=== PATIENT | male | born 1945 | race Caucasian/White ===

== ENCOUNTER → 2017-12-25 09:03 | Day surgery (SDC) | payer MEDICARE, OTHER, SELFPAY ==
[2017-12-24 09:37] VITALS: BMI 28.3
--- NOTE | 2017-12-25 08:18 | P.HP_ITS ---
History of Present Illness Chief complaint: [id number] Narrative: Jeffery Hedrick is a 72 year old male [facility], [facility] Medical History COPD (chronic obstructive pulmonary disease) (Acute) DJD (degenerative joint disease) (Acute) Depression (Acute) Left rotator cuff tear (Acute) Median nerve compression (Acute) Osteoarthritis (Acute) Pneumonia (Acute) Surgical History History of arthroscopy of right knee (Acute) History of bilateral knee arthroplasty (Acute) History of bilateral total hip arthroplasty (Acute) History of thumb surgery (Acute) Meds Home Medications Medication Instructions Recorded Confirmed Type MULTIVITAMIN (One Daily 1 tab PO QDAY #0 01/30/11 History Multivitamin) [ASPIRIN] 325 mg PO QDAY #0 01/30/11 History [FISH OIL] PO QDAY #0 01/30/11 History Allergies Allergy/AdvReac Type Severity Reaction Status Date / Time No Known Allergies Allergy Uncoded 11/26/17 13:07
[2017-12-25 09:21] VITALS: BMI 28.3
[2017-12-25 09:28] VITALS: BMI 28.3
[2017-12-25 09:42] VITALS: BP 133/84; PULSE 64; RESP 16; TEMP 36.5; O2SAT 94
[2017-12-25] MEDS: LACTATED RINGERS 1,000 ML 42 ML IV (09:55)
--- NOTE | 2017-12-25 09:57 | PM.PREOP ---
Pre-operative Note Interval Note Pre-op Check: History & Physical Reviewed, Exam Performed and History & Physical exam performed today
[2017-12-25] MEDS: CEFAZOLIN 2 GM/100 ML FROZ.PIGGY IV (11:10)
--- NOTE | 2017-12-25 11:15 | P.OP_ITS ---
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 Operative site was signed and witnessed by the OR staff. The surgery once again discussed with patient and any remaining questions they had were answered fully. Patient was taken back to the operating theater and placed on the operating table in the supine position. Great care taken to ensure that all bony prominences were properly padded. A well-padded tourniquet was placed up along the upper extremity. A timeout was performed to verify patient's name, procedure, and operative site. The upper extremity was then prepped and draped in the normal sterile fashion. An Esmarch was used to exsanguinate the limb and the tourniquet was turned up to 250 mm mercury. A midline dorsal incision was made centered over the MCP joint. 15 blade was used to incise the skin and fascial tissue. Sharp dissection was continued until the extensor mechanism was identified. Once we had good visualization of the extensor mechanism, a split was made thru the extensor tendon. A rongur was used to remove the bony osteophytes from around the joint. We started with the metacarpal. A starting awl was used to get an osseous tunnel. The alignment guide was used to verify the alignment. C-arm was used to verify the alignment. Next, a cutting guide was placed and a oscillating saw was used to remove the joint surface of the metacarpal. Next we broached the metacarpal. We then turned our attention to the proximal phalanx. A similar procedure was performed. A starting awl was used to get a bone tunnel and an alignment guide in place and verified with C-arm. A cutting guide was then used to remove the articular surface. The distal aspect of the joint was then broached. The wound was then copiously irrigated and then implant trials were tested. Once we were sure that the joint was appropriately balanced, the final implants were impacted into place. Final x-rays were obtained. The wound was copiously irrigated and the tendon incision was repaired. This wound was closed in a layered fashion. The patient's hand was then cleaned, dried, and dressed. The patient was taken to the PACU in stable condition. Complications: none Condition: stable Disposition: PACU
[2017-12-25] MEDS: BUPIVACAINE 0.5% W/ EPI (PF) 30 ML VIAL INJ (11:53)
[2017-12-25 12:32] VITALS: BP 119/80; PULSE 65; RESP 14; TEMP 36.8; O2SAT 95
[2017-12-25 12:38] VITALS: BP 124/85; PULSE 76; RESP 16; O2SAT 96
[2017-12-25 12:43] VITALS: BP 131/6; PULSE 71; RESP 16; O2SAT 95
[2017-12-25] MEDS: OXYCODONE IR 5 MG TABLET 10 MG PO (12:45)
[2017-12-25 12:57] VITALS: BP 116/56; PULSE 76; RESP 16; TEMP 37; O2SAT 95
[2017-12-25 13:12] VITALS: BP 108/74; PULSE 64; RESP 16; TEMP 36.6; O2SAT 93
== END | disposition home or self-care (01) ==
PROVIDERS: Family Provider Family Medicine; PCP Family Medicine; Visit Provider Orthopaedic Surgery
PROC: (CPT 26535; principal; 2017-12-25 10:45)
DX: M19.041 Primary osteoarthritis, right hand (principal); M06.9 Rheumatoid arthritis, unspecified; J44.9 Chronic obstructive pulmonary disease, unspecified; Z72.0 Tobacco use
CPT/HCPCS: 26536; J0690; J2250; J2405; J2704; J3010

== ENCOUNTER 2019-09-24 08:49 | Day surgery (SDC) | payer MEDICARE, OTHER, SELFPAY ==
[2019-09-23 12:25] VITALS: BMI 26.6
[2019-09-24] MEDS: LACTATED RINGERS 1,000 ML 42 ML IV (09:43)
[2019-09-24] MEDS: CELECOXIB 200 MG CAPSULE 400 MG PO (09:44)
[2019-09-24] MEDS: ACETAMINOPHEN 325 MG TABLET 975 MG PO (09:45)
[2019-09-24] MEDS: GABAPENTIN 300 MG CAPSULE PO (09:46)
[2019-09-24 09:49] VITALS: BP 150/83; PULSE 60; RESP 18; TEMP 37.1; O2SAT 97; BMI 26.6
--- NOTE | 2019-09-24 11:18 | SUR.PREOP ---
pt continues to wait for MD to come and see him regarding his EKG. MD is still in surgery. Pt resting quietly. Updated on progress.
--- NOTE | 2019-09-24 12:26 | SUR.PREOP ---
Pt talked to Dr. Houston and Dr. Kothari. pt to see primary care DrHemant and see a employment clerk to work up his heart . Surgery was canceled and pt awaiting ride to d/c him home. Pt is understanding and ferry pass given to pt. Pt denies any complaints . Denies chest pain and shortness of breath.
--- NOTE | 2019-09-24 12:29 | SUR.PREOP ---
pt given juice and awaiting his ride home.
== END 2019-09-24 12:30 | disposition home or self-care (01) ==
PROVIDERS: Family Provider Family Medicine; PCP Family Medicine; Referring Provider Specialist; Visit Provider Specialist
PROC: (CPT 55040; principal; 2019-09-24 10:45)
DX: N43.2 Other hydrocele (principal); Z53.09 Procedure and treatment not carried out because of other contraindication; I44.1 Atrioventricular block, second degree
CPT/HCPCS: 55040; 93005

== ENCOUNTER 2020-02-07 10:34 | Day surgery (SDC) | payer MEDICARE, OTHER, SELFPAY ==
[2020-02-02 14:52] VITALS: BMI 26.6
[2020-02-07] VITALS (7 sets, daily range): BP systolic 128–171; BP diastolic 61–74; PULSE 47–60; RESP 14–22; TEMP 36.3–37.1; O2SAT 92–98; BMI 26.6
--- NOTE | 2020-02-07 | PATH_ITS ---
[facility] Accession Number: [id number] . 01 Material submitted: . body - RIGHT HYDROCELE SAC . 02 Diagnosis: Right Hydrocele Sac, Biopsy: Consistent with hydrocele. MRV 02/09/2020 1154 Local . 02 Electronically signed: . Jill Vargas MD, Pathologist NPI- [id number] . 01 Gross description: . Specimen A is received in formalin, labeled with patient identification and hydrocele sac. It consists of a disrupted pink to yellow-castelan membranous sac, measuring 6.5 x 3.0 x 0.5 cm. One surface is smooth and dull. The other surface is wrinkled without any grossly identified papulation. Portable Feed Mill Operator sections are submitted in two cassettes. . Summary of Sections: A1-A2 - Three pieces each. ([id number]) /[facility] 02/08/2020 1626 Local . 02 Pathologist provided ICD-10: N43.2 . 02 CPT . 274784 Performed at: 01 [facility] [address] [facility], [place], [place] [id number] MD William Mathew MD Phone: [phone] Performed at: 02 [facility] [address] [place], [place] [id number] MD Jill Vargas MD Phone: [phone]
--- NOTE | 2020-02-07 11:58 | PM.PREOP ---
Pre-operative Note Interval Note History & Physical reviewed/Exam performed by Physician: Yes Changes to H&P: No H&P completed within 30 days and has changed as indicated here:: There are no changes to the history and physical examination scanned on file.
[2020-02-07] MEDS: LACTATED RINGERS 1,000 ML 42 ML IV (12:19)
[2020-02-07] MEDS: CEFAZOLIN 2 GM/100 ML FROZ.PIGGY IV (12:32)
--- NOTE | 2020-02-07 13:04 | SUR.OPER ---
Supine on padded OR bed, head on pillow, arms secured on padded arm boards at <90 degrees abduction, legs uncrossed, safety belt at thigh, tape over blanket over lower legs.
[2020-02-07] MEDS: NEOMYCIN/POLYMYXIN/BACITRA UD OINT 3 EACH TOP (13:13)
[2020-02-07] MEDS: BUPIVACAINE LIPOSOME 266 MG/20 ML VIAL INJ (13:13)
--- NOTE | 2020-02-07 13:54 | PM.OP.1 ---
Operative Date/Time/Diagnoses Date of procedure: 02/07/20 Time of procedure: 13:54 Pre-op diagnosis: right hydrocele Procedure & Clinicians Procedure: 1. Right hydrocelectomy. Same procedure as scheduled: Yes Indications: 1. Symptomatic right hydrocele. Surgeon: Liss Ramirez Click Yes if Unassisted: Yes Anesthesia Type: General Operative Notes Findings: Moderate sized hydrocele with clear straw-colored fluid. Chronically inflamed in fibrotic tunica vaginalis. Closure Type: primary Specimen(s): none sent (Hydrocele sac-gross only.) Estimated Blood Loss (mL): 0 Blood products transfused: none Tourniquet time (min): 0 Procedure in detail: Patient was positioned supine and was administered general anesthesia. The lower abdomen genitalia and groin were then prepped and draped in sterile fashion. The midline scrotal rough a was then infiltrated with a solution of 1.33% Exparel. The needle tip cautery pen was then used to divide the midline scrotal raphae skin and subcutaneous dartos fascia. The plane at the level of the tunica vaginalis was then encountered. Blunt dissection was then utilized to deliver the hydrocele sac from within the right hemiscrotum. A midline incision was made in the sac and its contents were drained. It was extended the full length of the sac. A redundant portion of the sac was excised using the needle-tip cautery pen. The specimen was submitted to pathology for routine teen gross exam only. Next the edges of the remaining hydrocele sac were reflected posteriorly in a bookkeeping teacher fashion. A running horizontal mattress of 3 0 Monocryl were then utilized to perform the repair. The edges of the sac were secured inferiorly and superiorly to the posterior scrotal wall with the same suture. Local anesthetic was then used to infiltrate an area at the inferolateral right hemiscrotal wall and to the skin. A 15 Divehi fenestrated Best drain was then positioned in the right hemiscrotum and trimmed to appropriate length. It was secured at the level the skin with 2 0 silk using a Bret send all technique. The midline dartos fascia and skin were then infiltrated with local anesthetic a dot dartos fascia was then closed with a running vertical mattress of 2 0 Monocryl. The skin was reapproximated using a running horizontal mattress of 4 0 Monocryl. Antibiotic ointment was applied to the incision line and a generous quantity of dry sterile fluffs was applied to the scrotum. An athletic supporter was then selected and fitted to the patient. The drain was placed to bulb self suction. The patient was then awakened, and transferred to [facility] in stable condition. Complications: none Post-operative Condition: stable Disposition: PACU Plan for aftercare: Discharge home
--- NOTE | 2020-02-07 14:57 | SUR.PHASEII ---
Went over all discharge instructions with patient and called patient's roomate Rosalva, as requested by patient, and went over all instructions with her as well. Patient denies questions
== END 2020-02-07 15:06 | disposition home or self-care (01) ==
PROVIDERS: Family Provider Family Medicine; PCP Family Medicine; Referring Provider Specialist; Visit Provider Specialist
PROC: (CPT 55040; principal; 2020-02-07 12:30)
DX: N43.2 Other hydrocele (principal); N40.0 Benign prostatic hyperplasia without lower urinary tract symptoms
CPT/HCPCS: 55040; C9290; J0690; J1100; J2250; J2405; J2704; J3010

== ENCOUNTER → 2021-01-02 12:25 | Outpatient (CLI) | payer MEDICARE, OTHER, SELFPAY ==
[2021-01-02 20:07] LABS: Add Manual Diff / Slide Review NO; Basophils Absolute Auto 100 /uL (0-100); Basophils Percent Auto 1.2 % (0-2); Eosinophils Absolute Auto 100 /uL (0-450); Eosinophils Percent Auto 1.2 % (2-4); Hematocrit 38.3 % (41-53); Hemoglobin 12.7 g/dL (13.5-17.5); Lymphocytes Absolute Auto 1300 /uL (1100-4500); Lymphocytes Percent Auto 20.5 % (25-40); Mean Corpuscular Hemoglobin 29.6 PG (26-34); Mean Corpuscular Volume 89.5 fL (80-100); Monocytes Absolute Auto 400 /uL (0-900); Monocytes Percent Auto 6.8 % (3-14); Neutrophils Absolute Auto 4400 /uL (1500-7000); Neutrophils Percent Auto 70.3 % (50-75); Platelet Count 279 X10^3/uL (150-400); Red Blood Cell Count 4.28 X10^6/uL (4.5-5.9); Red Cell Distribution Width 15.3 % (11.6-14.8); White Blood Cell Count 6.2 X10^3/uL (4.5-11.0)
[2021-01-02 20:16] LABS: HEMOLYSIS < 15 (0-50); Iron 29 ug/dL (49-181)
[2021-01-02 20:22] LABS: Alanine Aminotransferase 18 IU/L (<50); Albumin Globulin Ratio 1.6 (1.0-2.8); Alkaline Phosphatase 84 U/L (38-126); Aspartate Aminotransferase 30 IU/L (17-59); BUN Creatinine Ratio 20.5 (6-22); Bilirubin Total 0.6 mg/dL (0.2-1.3); Blood Urea Nitrogen 15 mg/dL (9-20); Carbon Dioxide 28 mmol/L (22-32); Chloride 105 mmol/L (98-107); Estimated Glomerular Filt Rate > 60.0 mL/min (>60); Globulin 2.5 g/dL (1.7-4.1); Glucose 112 mg/dL (80-110); HEMOLYSIS < 15 (0-50); Sodium 140 mmol/L (137-145); Total Protein 6.5 g/dL (6.3-8.2)
[2021-01-02 20:28] LABS: Percent Iron Saturation 8 % (20-50); Total Iron Binding Capacity 361 ug/dL (261-462); Transferrin 281 mg/dL (206-381)
[2021-01-02 21:00] LABS: Ferritin 12 ng/mL (18-464)
[2021-01-02 21:28] LABS: Folate 5.4 ng/mL (2.76-20.0); Vitamin B12 336 pg/mL (239-931)
== END ==
PROVIDERS: Family Provider Family Medicine; PCP Family Medicine; Referring Provider Family Medicine; Visit Provider Family Medicine
DX: I70.202 Unspecified atherosclerosis of native arteries of extremities, left leg (principal); I49.1 Atrial premature depolarization; B35.1 Tinea unguium; D64.9 Anemia, unspecified; I82.442 Acute embolism and thrombosis of left tibial vein; R63.4 Abnormal weight loss
CPT/HCPCS: 80053; 82607; 82728; 82746; 83540; 83550; 85025

== ENCOUNTER → 2022-04-25 11:50 | Outpatient (CLI) | payer MEDICARE, OTHER, SELFPAY ==
--- NOTE | 2022-04-25 11:54 | DI.US.S_ITS ---
PROCEDURE: US PERIPH VENOUS LOW EXTREM BI INDICATIONS: Personal history of other venous thrombosis and em TECHNIQUE: Real-time imaging, as well as color and pulse Doppler interrogation, were performed of the deep veins of both legs from the inguinal ligament to the popliteal fossa. COMPARISON: None. FINDINGS: Right: The common femoral, femoral and popliteal veins are normally compressible, and free of intraluminal thrombus. Color and pulse Doppler demonstrate normal phasic intravascular flow. There is normal augmentation response to distal compression maneuver. Left: The common femoral, femoral and popliteal veins are normally compressible, and free of intraluminal thrombus. Color and pulse Doppler demonstrate normal phasic intravascular flow. There is normal augmentation response to distal compression maneuver. IMPRESSION: No evidence of deep venous thrombosis in the lower extremities. Dictated by: Gary Juárez M.D. on 04/25/2022 at 16:40 Approved by: Gary Juárez M.D. on 04/25/2022 at 16:41
== END ==
PROVIDERS: Family Provider Family Medicine; PCP Family Medicine; Referring Provider Family Medicine; Visit Provider Family Medicine
DX: Z86.718 Personal history of other venous thrombosis and embolism (principal)
CPT/HCPCS: 93970

== ENCOUNTER → 2022-11-08 11:18 | Outpatient (CLI) | payer MEDICARE, OTHER, SELFPAY ==
--- NOTE | 2022-11-08 | DI.CT.S_ITS ---
PROCEDURE: CT ABDOMEN PELVIS W CON INDICATIONS: Right lower quadrant pain TECHNIQUE: After the administration of oral and intravenous contrast, axial sections were acquired from the lung bases to the pubic symphysis. Coronal and sagittal reformats were performed. For radiation dose reduction, the following was used: automated exposure control, adjustment of mA and/or kV according to patient size. COMPARISON:[facility], CT, ABDOMEN/PELVIS WITH CONTRAST, 09/24/2008, 20:02. FINDINGS: Image quality: Significant beam hardening artifact secondary to bilateral total hip arthroplasty hardware which obscures visualization of the lower pelvis.. Lung bases: Bibasilar atelectasis. Stable 6 mm posterior left lower lobe nodule. Heart: Heart size is normal. Mild leftward displacement secondary to moderate eventration of the right hemidiaphragm. This is not significantly changed. ABDOMEN: Liver: There are a few scattered hepatic hypodensities which appear larger and more prominent compared to the prior study. These measure fluid attenuation. Largest on the right measures approximately 1.6 cm in size. Largest on the left measures approximately 1.2 cm in diameter. Gallbladder: Gallbladder appears unremarkable. Minimal prominence of the common bile duct. Common bile duct measures approximately 8 mm as measured in the coronal plane (image 30/series 3). No pericholecystic inflammatory changes. Biliary ducts: No intrahepatic biliary ductal dilatation. Pancreas: There is mild dilatation of the main pancreatic duct measuring approximately 6 mm in diameter. No evidence for definitive mass or adenopathy identified. No definite stone identified along the course of the common bile duct or region of the ampulla. Spleen: Spleen is unremarkable in appearance. Spleen is normal in size. Incidental splenule as before. Adrenal Glands: Unremarkable. Kidneys and Ureters: Bilateral kidneys are symmetric in enhancement. Partially exophytic left renal hypodensity appears to have increased in size, measuring slightly higher than fluid attenuation and approximately 1.9 cm in size. This is still favored to represent a renal cyst. There is a 0.8 cm stone noted within the lower left kidney measuring approximately 1300 Hounsfield units. Left ureter is normal in course and caliber. On the right, there is mild hydronephrosis and associated proximal right hydroureter. Distal segments of the right ureter are not visible secondary to right lower quadrant and right abdominal mass lesions described below. Stomach and Bowel: Stomach, small bowel loops, and colon are unremarkable. No evidence for obstruction. Relatively high density material noted in the sigmoid colon possibly representing ingested oral contrast although majority oral contrast is noted in the small bowel. No evidence for abnormal wall thickening or acute inflammatory changes. Extensive colonic diverticulosis most prominent in the sigmoid colon. No evidence for acute diverticulitis. The appendix is not visualized on this examination. Peritoneum: There is a large oval hypodense mass measuring approximately soft tissue attenuation noted in the right mid to lower abdomen which displaces the IVC and aorta medially and to the left of the spine. It causes mass effect and slight displacement of the adjacent colon anteriorly. There is intimate, close approximation of the anterolateral margin of this mass with the proximal ascending colon and terminal ileum. Definite fat plane is not visualized although this mass does not definitively appear to originate from bowel. Additionally, the posterior, medial margin of this mass closely approximates and causes mass effect upon the right psoas muscle. The mid portion of the right psoas is not definitively distinguishable from this mass, raising possibility invasion. An example is seen on image 57/series 2. Mass measures approximately 11.0 x 8.1 cm in axial transverse dimension (image 50/series 2) and approximately 15.5 cm in craniocaudal dimension (image 25/series 3). Immediately inferior to this mass is a possible separate large multi lobulated fat attenuating mass in the lower right quadrant extending into the right pelvis . This mass measures approximately 8.7 x 6.3 cm in axial cross-sectional dimension (image 74/series 2) and approximately 8.4 cm in craniocaudal dimension (image 30/series 3). Lobulated components of this density mass extend along and anterior to the soft tissue mass inferiorly. There is suggestion of possible extension into the right inguinal canal. There are a few strands of soft tissue attenuation within this fat density mass. This mass causes leftward deviation of the adjacent sigmoid colon without underlying invasion. It causes mass effect upon the traversing large pelvic vessels without evidence for occlusion or thrombus. No abnormal intraperitoneal fluid. No free air. Ventral Wall: No hernia. Abdominal Nodes: No retroperitoneal or mesenteric adenopathy by size criteria. Vessels: Aorta and inferior vena cava are normal in size. PELVIS: Pelvic Organs: Unremarkable. Bladder: Unremarkable. Pelvic Nodes: No enlarged lymph nodes. Miscellaneous: No inguinal hernias are seen. Bones: No suspicious osseous lesions. Postsurgical changes from bilateral total hip arthroplasties. Severe beam hardening artifact of surgical hardware obscures visualization of the lower pelvic structures. No acute vertebral body compression fractures. Multilevel spondylitic changes throughout the imaged spine. IMPRESSION: 1. Very large oval low density mass noted in the right mid to lower abdomen with associated mass effect of the adjacent ascending colon and distal small bowel as well as possible invasion of the adjacent right psoas muscle. This mass measures 11.0 x 8.1 x 15.5 cm in size. It is difficult to determine the origin of this mass from either bowel or possible musculature. Consideration include possible mucocele of the appendix, non mucinous adenocarcinoma, versus other neoplastic process. No adenopathy identified. No definite distal metastases. No evidence for associated bowel obstruction or acute inflammatory process. 2. There is a lobulated, fat attenuating mass extending immediately inferior to the above mass within the right lower quadrant/pelvis which measures approximately 8.7 x 6.3 x 8.4 cm in size with associated mass effect. No definite invasion into the adjacent structures. Similar to above, the origin of this mass is also difficult to determine. A liposarcoma may have a similar appearance versus other fatty tumor. No pelvic adenopathy visualized. 3. A few hepatic hypodensities which have increased in size and prominence compared to prior study dated September 24, 2008 measure fluid attenuation and likely represent hepatic cysts. However, these are incompletely characterized and hepatic metastases not completely excluded. 4. Interval development of mildly dilated common bile duct and main pancreatic duct without evidence for choledocholithiasis or visible mass/adenopathy near the pancreatic head. Consider further evaluation with dedicated MRI of the abdomen using pancreatic mass protocol. 5. Colonic diverticulosis without acute diverticulitis. 6. Other chronic findings as above. Dictated by: Jose Alfredo Villarreal M.D. on 11/08/2022 at 20:31 Approved by: Jose Alfredo Villarreal M.D. on 11/08/2022 at 21:38
== END ==
PROVIDERS: Family Provider Family Medicine; PCP Family Medicine; Referring Provider Family Medicine; Visit Provider Family Medicine
DX: R10.31 Right lower quadrant pain (principal); R19.03 Right lower quadrant abdominal swelling, mass and lump; K57.30 Diverticulosis of large intestine without perforation or abscess without bleeding; R93.5 Abnormal findings on diagnostic imaging of other abdominal regions, including retroperitoneum
CPT/HCPCS: 74177

== ENCOUNTER → 2023-01-06 11:28 | Outpatient (CLI) | payer MEDICARE, OTHER, SELFPAY ==
--- NOTE | 2023-01-06 | DI.CT.S_ITS ---
PROCEDURE: CT CHEST ABD PEL W CON INDICATIONS: ABDOMINAL MASS TECHNIQUE: After the administration of oral and intravenous contrast, axial sections acquired from the supraclavicular neck to the pubic symphysis. Coronal and sagittal reformats were performed. For radiation dose reduction, the following was used: automated exposure control, adjustment of mA and/or kV according to patient size. COMPARISON: CT 09/24/2008 FINDINGS: Image quality: Excellent. CHEST: Lower Neck: No enlarged lymph nodes. Thyroid: Within normal limits. Axillae: No enlarged lymph nodes. Chest Wall: Unremarkable. Lungs and Airways: Elevated right hemidiaphragm. A couple solid pulmonary nodules. These include: -4-5 mm subpleural nodule, right lower lobe (series 6, image 176). -8-9 mm solid nodule, left lower lobe (series 6, image 248). This is stable since 2008, statistically benign. Pleura: No pneumothorax or pleural effusions. Heart: Heart size is normal. No pericardial effusion. Thoracic Vessels: The aorta and pulmonary arteries demonstrate normal size. Mediastinum and Pauline: No enlarged lymph nodes. Esophagus: No wall thickening. No hiatal hernia. ABDOMEN: Liver: Hypoattenuating liver lesions with fluid attenuation, favoring benign cysts. Gallbladder: Unremarkable. Biliary ducts: Unremarkable. Pancreas: Unremarkable. Spleen: Unremarkable. Adrenal Glands: Unremarkable. Kidneys and Ureters: 7 mm nonobstructing stone in the inferior calyx of the left kidney. Fluid attenuating hepatic cysts. Stomach and Bowel: Stomach, small bowel loops, and colon are unremarkable. Colonic diverticulosis without evidence of diverticulitis. Peritoneum/retroperitoneum: There is a mixed soft tissue and fat containing mass originating in the right retroperitoneal space measuring 22.7 x 11 x 9.7 cm (cc, transverse, AP) Ventral Wall: No hernia. Abdominal Nodes: No retroperitoneal or mesenteric adenopathy by size criteria. Vessels: Aorta and inferior vena cava are normal in size. PELVIS: Pelvic Organs: Unremarkable. Bladder: Unremarkable. Pelvic Nodes: No enlarged lymph nodes. Miscellaneous: No inguinal hernias are seen. Bones: Unremarkable. IMPRESSION: 1. Retroperitoneal mass with soft tissue and fat components measuring 22.7 x 11 x 9.7 cm. 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 Surgical consultation is recommended. 2. No definite evidence of metastatic disease. 3. A couple of solid pulmonary nodules, the largest of which is stable since 2008 and is therefore statistically benign. The right-sided subpleural nodule was not seen on the prior exam due to field of view, but location favors an intrapulmonary lymph node. Attention on follow-up. Dictated by: Bar Martin M.D. on 01/06/2023 at 12:52 Approved by: Bar Martin M.D. on 01/06/2023 at 13:04
[2023-01-06 11:57] LABS: Estimated Glomerular Filt Rate > 60 mL/min (>60)
== END ==
PROVIDERS: Radiology Diagnostic Radiology; Family Provider Family Medicine; PCP Family Medicine; Referring Provider Internal Medicine Cardiovascular Disease; Visit Provider Internal Medicine Cardiovascular Disease
DX: R19.00 Intra-abdominal and pelvic swelling, mass and lump, unspecified site (principal); R91.8 Other nonspecific abnormal finding of lung field
CPT/HCPCS: 36415; 71260; 74177; 82565; Q9967

== ENCOUNTER → 2023-05-15 11:07 | Outpatient (CLI) | payer MEDICARE, OTHER, SELFPAY ==
--- NOTE | 2023-05-15 11:12 | DI.CT.S_ITS ---
PROCEDURE: CT ABDOMEN PELVIS W CON INDICATIONS: RETROPERITONEAL SARCOMA TECHNIQUE: After the administration of oral and intravenous contrast, axial sections were acquired from the lung bases to the pubic symphysis. Coronal and sagittal reformats were performed. For radiation dose reduction, the following was used: automated exposure control, adjustment of mA and/or kV according to patient size. COMPARISON:[facility], CT, CT CHEST ABD PEL W CON, 01/06/2023, 13:17. [facility], CT, CT ABDOMEN PELVIS W CON, 11/08/2022, 13:01. FINDINGS: Image quality: Excellent. Lung bases: Please see dedicated CT. ABDOMEN: Liver: Stable hepatic cysts. Elevation the right hemidiaphragm. Gallbladder: Unremarkable. Biliary ducts: Unremarkable. Pancreas: Unremarkable. Spleen: Unremarkable. Adrenal Glands: Unremarkable. Kidneys and Ureters: Fluid attenuating renal cysts; no complex renal cysts which require follow-up. No hydronephrosis . 5 millimeter nonobstructing left-sided nephrolithiasis. Stomach and Bowel: Moderate colonic stool load. Colonic diverticulosis without evidence of diverticulitis. Peritoneum: No abnormal intraperitoneal fluid. No free air. Ventral Wall: No hernia. Abdominal Nodes: No retroperitoneal or mesenteric adenopathy by size criteria. Vessels: Aorta and inferior vena cava are normal in size. PELVIS: Pelvic Organs: Interval resection of the right retroperitoneal/pelvic mass. No evidence of local recurrence. Bladder: Unremarkable. Pelvic Nodes: No enlarged lymph nodes. Miscellaneous: No inguinal hernias are seen. Bones: Unremarkable. IMPRESSION: Interval resection of the right pelvic/retroperitoneal mass. No evidence of local recurrence or beau disease. No evidence of metastatic disease. Dictated by: Bar Martin M.D. on 05/15/2023 at 13:20 Approved by: Bar Martin M.D. on 05/15/2023 at 13:36
--- NOTE | 2023-05-15 11:13 | DI.CT.S_ITS ---
PROCEDURE: CT CHEST WO CON INDICATIONS: RETROPERITONEAL SARCOMA TECHNIQUE: Noncontrast 5 mm thick sections acquired from the pulmonary apices to the posterior costophrenic angles. 1 mm lung window, 5 mm thick coronal and sagittal and 7 mm axial MIP reformats were then acquired. For radiation dose reduction, the following was used: automated exposure control, adjustment of mA and/or kV according to patient size. COMPARISON: [facility], CT, CT CHEST ABD PEL W CON, 01/06/2023, 13:17. FINDINGS: Image quality: Excellent. Lungs and pleura: No acute air space opacities. No pleural effusions or pneumothorax. Central and peripheral airways are patent and normal in caliber. Elevation of the right hemidiaphragm. Scattered solid pulmonary nodules. Examples include: -Stable 4-5 millimeter subpleural nodule in the right lower lobe (series 3, image 172). - Stable left lower lobe solid pulmonary nodule since 2008 (series 3, image 273). - stable 2 millimeter solid nodule, right upper lobe (series 3, image 81). No new nodules present. Mediastinum: Heart size is normal. No pericardial effusion. No mediastinal adenopathy by size criteria. Thoracic aorta and central pulmonary arteries are normal in size. Esophagus is normal in caliber. No hiatal hernia. Bones and chest wall: No suspicious bony lesions. No vertebral body compression fractures. No axillary or supraclavicular adenopathy by size criteria. Thyroid gland is mildly atrophic. Abdomen: Fluid attenuating hepatic cysts. IMPRESSION: No definite evidence of metastatic disease in the chest. Stable subpleural nodule in the right lower lobe. Dictated by: Bar Martin M.D. on 05/15/2023 at 13:12 Approved by: Bar Martin M.D. on 05/15/2023 at 13:16
[2023-05-15 11:33] LABS: Estimated Glomerular Filt Rate > 60 mL/min (>60)
== END ==
PROVIDERS: Radiology Diagnostic Radiology; Family Provider Family Medicine; PCP Family Medicine; Referring Provider Surgery; Visit Provider Surgery
DX: C48.0 Malignant neoplasm of retroperitoneum (principal); R91.1 Solitary pulmonary nodule
CPT/HCPCS: 36415; 71250; 74177; 82565; Q9967

== ENCOUNTER → 2023-08-07 12:59 | Outpatient (CLI) | payer MEDICARE, OTHER, SELFPAY ==
--- NOTE | 2023-08-07 | DI.CT.S_ITS ---
PROCEDURE: CT CHEST ABD PEL W CON INDICATIONS: Malignant neoplasm of retroperitoneum TECHNIQUE: After the administration of oral and intravenous contrast, axial sections acquired from the supraclavicular neck to the pubic symphysis. Coronal and sagittal reformats were performed. For radiation dose reduction, the following was used: automated exposure control, adjustment of mA and/or kV according to patient size. COMPARISON: [facility], CT, CT CHEST ABD PEL W CON, 01/06/2023, 13:17. FINDINGS: Image quality: Excellent. CHEST: Lower Neck: No enlarged lymph nodes. Thyroid: No thyroid nodules which require sonographic follow up, per consensus guidelines. Axillae: No enlarged lymph nodes. Chest Wall: Unremarkable. Bones: Unremarkable. Lungs and Pleura: No pneumothorax or pleural effusions. Stable 4.5 mm subpleural right lower lobe pulmonary nodule, current image 216/6. Soft stable 8 mm pulmonary nodule, subpleural location, extreme left lung base, current image 312/6. This is stable dating back to 2008. No new or increasing pulmonary nodules. Elevated right hemidiaphragm with superior displacement of the liver and mediastinal shift to the left, a stable finding. Heart: Heart size is normal. No pericardial effusion. Thoracic Vessels: The aorta and pulmonary arteries demonstrate normal size. Mediastinum and Pauline: No enlarged lymph nodes. Esophagus: No wall thickening. No hiatal hernia. ABDOMEN: Liver: No solid mass. Multiple stable low-density liver lesions are likely cysts versus hemangiomata. No new or increasing liver lesions. Gallbladder: No radiopaque gallstones or wall thickening. Biliary ducts: No biliary dilation. Pancreas: No ductal dilation. Spleen: Size is within normal limits. Adrenal Glands: No adrenal nodules. Kidneys and Ureters: No hydronephrosis. No solid mass. No complex renal cystic lesion which requires follow up. 7 mm left lower pole renal stone, as before. No obstruction. Stomach and Bowel: Normal colonic caliber, without significant wall thickening. Relatively extensive sigmoid diverticulosis without evidence of diverticulitis. Peritoneum: No abnormal intraperitoneal fluid. No free air. Retroperitoneum: Interval resection of a large right abdominal pelvic retroperitoneal mass, which is previously measured 22.7 x 11 x 9.7 cm. No evidence of residual or recurrent neoplasm in the retroperitoneum or the peritoneal cavity. Ventral Wall: No hernia. Abdominal Nodes: No retroperitoneal or mesenteric adenopathy by size criteria. Vessels: Aorta and inferior vena cava are normal in size. PELVIS: Pelvic Organs: Unremarkable. Bladder: Unremarkable. Pelvic Nodes: No enlarged lymph nodes. Miscellaneous: No inguinal hernias are seen. Bones: No aggressive osseous abnormality. Bilateral total hip arthroplasties. Lumbar degenerative change. IMPRESSION: 1. Interval resection of a very large retroperitoneal malignancy. No evidence of residual or recurrent neoplasm. 2. Stable pulmonary nodules are likely benign. 3. No other findings suspicious for metastatic disease in the chest, abdomen, and pelvis. Dictated by: Pato Molina M.D. on 08/07/2023 at 17:13 Approved by: Pato Molina M.D. on 08/07/2023 at 17:21
[2023-08-07 13:22] LABS: Estimated Glomerular Filt Rate > 60 mL/min (>60)
== END ==
PROVIDERS: Radiology Diagnostic Radiology; Family Provider Family Medicine; PCP Family Medicine; Referring Provider Surgery; Visit Provider Surgery
DX: C48.0 Malignant neoplasm of retroperitoneum (principal); R19.03 Right lower quadrant abdominal swelling, mass and lump; R91.8 Other nonspecific abnormal finding of lung field
CPT/HCPCS: 36415; 71260; 74177; 82565; Q9967

== ENCOUNTER → 2023-10-13 10:29 | Outpatient (CLI) | payer MEDICARE, OTHER, SELFPAY ==
--- NOTE | 2023-10-13 | DI.CT.S_ITS ---
PROCEDURE: CT ABDOMEN PELVIS W CON INDICATIONS: Malignant neoplasm of retroperitoneum TECHNIQUE: After the administration of intravenous contrast, axial sections acquired from the lung bases to the pubic symphysis. Coronal and sagittal reformats were performed. For radiation dose reduction, the following was used: automated exposure control, adjustment of mA and/or kV according to patient size. COMPARISON: [facility], CT, CT ABDOMEN PELVIS W CON, 11/08/2022, 13:01. [facility], CT, ABDOMEN/PELVIS WITH CONTRAST, 09/24/2008, 20:02. [facility], CT, CT ABDOMEN PELVIS W CON, 05/15/2023, 12:28. FINDINGS: Image quality: Suboptimal due to motion artifact and metallic artifact. Lower Chest: Please see same day dedicated chest CT. ABDOMEN: Liver: Hepatic cysts. Gallbladder: No radiopaque gallstones or wall thickening. Biliary ducts: No biliary dilation. Pancreas: No ductal dilation. Spleen: Size is within normal limits. Adrenal Glands: No adrenal nodules. Kidneys and Ureters: No hydronephrosis. No solid mass. No complex renal cystic lesion which requires follow up. Nonobstructing 8 mm nephrolithiasis on the left. Stomach and Bowel: Normal colonic caliber, without significant wall thickening. Colonic diverticulosis without evidence of diverticulitis. Peritoneum: No abnormal intraperitoneal fluid. No free air. Retroperitoneal resection on the right. Ventral Wall: No significant ventral hernia. Abdominal Nodes: No retroperitoneal or mesenteric adenopathy by size criteria. Vessels: Aorta and inferior vena cava are normal in size. PELVIS: Pelvic Organs: Unremarkable. Bladder: No bladder wall thickening, accounting for underdistention. Pelvic Nodes: No enlarged lymph nodes. Miscellaneous: No inguinal hernias are seen. Bones: No aggressive osseous abnormality. Bilateral hip arthroplasties. Degenerative disc disease. IMPRESSION: Prior retroperitoneal mass resection, without evidence of local recurrence. Other chronic findings as above. Dictated by: Bar Martin M.D. on 10/13/2023 at 13:15 Approved by: Bar Martin M.D. on 10/13/2023 at 13:20
--- NOTE | 2023-10-13 | DI.CT.S_ITS ---
PROCEDURE: CT CHEST WO CON INDICATIONS: Malignant neoplasm of retroperitoneum TECHNIQUE: Noncontrast 5 mm thick sections acquired from the pulmonary apices to the posterior costophrenic angles. 1 mm lung window, 5 mm thick coronal and sagittal and 7 mm axial MIP reformats were then acquired. For radiation dose reduction, the following was used: automated exposure control, adjustment of mA and/or kV according to patient size. COMPARISON: [facility], CT, CT CHEST WO CON, 05/15/2023, 12:28. FINDINGS: Image quality: Diagnostic. Lower Neck: No enlarged lymph nodes. Thyroid: No thyroid nodules which require sonographic follow up, per consensus guidelines. Axillae: No enlarged lymph nodes. Chest Wall: Unremarkable. Bones: Unremarkable. Lungs and Pleura: No pneumothorax or pleural effusions. Stable solid pulmonary nodules, largest measures 4 x 5 mm in the juxtapleural station of the right lower lobe (series 3, image 187). Heart: Heart size is mildly enlarged. No pericardial effusion. Thoracic Vessels: The aorta and pulmonary arteries demonstrate normal size. Mediastinum and Pauline: No enlarged lymph nodes. Esophagus: No wall thickening. No hiatal hernia. Upper Abdomen: Hepatic cysts are present. IMPRESSION: Stable solid pulmonary nodules. Dictated by: Bar Martin M.D. on 10/13/2023 at 13:13 Approved by: Bar Martin M.D. on 10/13/2023 at 13:15
[2023-10-13 11:02] LABS: Estimated Glomerular Filt Rate > 60 mL/min (>60)
== END ==
PROVIDERS: Radiology Diagnostic Radiology; Family Provider Family Medicine; PCP Family Medicine; Referring Provider Physician Assistant; Visit Provider Physician Assistant
DX: C48.0 Malignant neoplasm of retroperitoneum (principal); R91.8 Other nonspecific abnormal finding of lung field; K76.89 Other specified diseases of liver; I51.7 Cardiomegaly; Z85.831 Personal history of malignant neoplasm of soft tissue
CPT/HCPCS: 36415; 71250; 74177; 82565; Q9967

== ENCOUNTER → 2024-03-10 10:25 | Outpatient (CLI) | payer MEDICARE, OTHER, SELFPAY ==
--- NOTE | 2024-03-10 | DI.CT.S_ITS ---
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 Coronal and sagittal reformats were performed. For radiation dose reduction, the following was used: automated exposure control, adjustment of mA and/or kV according to patient size. COMPARISON: [facility], CT, CT ABDOMEN PELVIS W CON, 11/08/2022, 13:01. [facility], CT, CT ABDOMEN PELVIS W CON, 10/13/2023, 11:41. FINDINGS: Image quality: Diagnostic. Lower Chest: Please refer to a separate report for today's CT chest findings. There is elevation of the right hemidiaphragm. Extreme lung bases are clear. Heart is deviated to the left by elevated right hemidiaphragm. ABDOMEN: Liver: No solid mass. Gallbladder: No radiopaque gallstones or wall thickening. Biliary ducts: No biliary dilation. Pancreas: No ductal dilation. Spleen: Size is within normal limits. Adrenal Glands: No adrenal nodules. Kidneys and Ureters: No hydronephrosis. No solid mass. No complex renal cystic lesion which requires follow up. Stomach and Bowel: Normal colonic caliber, without significant wall thickening. Note is made of interposition of bowel loops anterior to the liver. Sigmoid diverticulosis without evidence of acute diverticulitis. Peritoneum/retroperitoneum: No abnormal intraperitoneal fluid. No free air. Previous resection very large acute right retroperitoneal mass. No residual or recurrent mass noted. Ventral Wall: No significant ventral hernia. Abdominal Nodes: No retroperitoneal or mesenteric adenopathy by size criteria. Vessels: Aorta and inferior vena cava are normal in size. PELVIS: Pelvic Organs: Unremarkable. Bladder: No bladder wall thickening, accounting for underdistention. Pelvic Nodes: No enlarged lymph nodes. Miscellaneous: No inguinal hernias are seen. Bones: No aggressive osseous abnormality. Bilateral total hip arthroplasties. Lumbar degenerative change. IMPRESSION: 1. Remote resection of very large retroperitoneal mass on the right. No residual or recurrent local disease. No metastatic disease in the abdomen and pelvis noted. Dictated by: Pato Molina M.D. on 03/11/2024 at 9:13 Approved by: Pato Molina M.D. on 03/11/2024 at 9:23
--- NOTE | 2024-03-10 | DI.CT.S_ITS ---
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 1 mm lung window, 5 mm thick coronal and sagittal and 7 mm axial MIP reformats were then acquired. For radiation dose reduction, the following was used: automated exposure control, adjustment of mA and/or kV according to patient size. COMPARISON: [facility], CT, CT CHEST WO CON, 10/13/2023, 11:41. FINDINGS: Image quality: Diagnostic. Lower Neck: No enlarged lymph nodes. Thyroid: No thyroid nodules which require sonographic follow up, per consensus guidelines. Axillae: No enlarged lymph nodes. Chest Wall: Incidental pectus excavatum. Remote fracture of the left L1 transverse process. Or for Bones: No destructive osseous lesion. Lungs and Pleura: No pneumothorax or pleural effusions. Similar-appearing large linear area of consolidation/ground-glass opacity within the upper right lobe. No significant interval change in a solid oval pulmonary nodule within the posterior lower lobe that measures approximately 0.8 x 0.8 cm, compared to 0.8 x 0.7 cm. Similar-appearing round solid 4 mm pulmonary nodule within the posterior lower lobe. Stable solid 5 mm pulmonary nodule within the right middle lobe. Stable 5 mm linear solid pulmonary nodule within the lateral right lower lobe. Stable 6 mm linear solid pulmonary nodule within the posterior right lower lobe. Interval development of a 5 mm nodular ground-glass nodule within the posterior left lower lobe. There are 2 stable sub 5 mm nodules within the left oblique fissure. Atelectasis along the dependent portions of the lungs. Heart: Heart size is normal. No pericardial effusion. Thoracic Vessels: The aorta and pulmonary arteries demonstrate normal size. Small amount of calcified arthrosclerotic plaques within the aorta and its tributaries. Mediastinum and Pauline: No enlarged lymph nodes. Esophagus: No wall thickening. No hiatal hernia. Upper Abdomen: There are multiple hypodensities throughout the liver which are cysts. There are additional hypodensities throughout the liver which are too small to characterize. Visualized upper abdomen solid organs and bowel loops appear normal. There is bowel anterior to the liver. There is a 1.9 cm cyst within the inferior pole of the right kidney. IMPRESSION: 1. There are multiple pulmonary nodules throughout the lung, most of which are stable. However, there has been interval development of a 5 mm nodular ground-glass nodule within the posterior left lower lobe. 2. Similar-appearing large linear area of consolidation/ground-glass opacity within the upper right lobe. Dictated by: Urbano Hernández M.D. on 03/10/2024 at 14:17 Approved by: Urbano Hernández M.D. on 03/10/2024 at 15:13
[2024-03-10 10:59] LABS: Estimated Glomerular Filt Rate > 60 mL/min (>60)
== END ==
PROVIDERS: Radiology Diagnostic Radiology; Family Provider Family Medicine; PCP Family Medicine; Referring Provider Physician Assistant; Visit Provider Physician Assistant
DX: C48.0 Malignant neoplasm of retroperitoneum (principal); Z08 Encounter for follow-up examination after completed treatment for malignant neoplasm; R91.8 Other nonspecific abnormal finding of lung field; Z85.831 Personal history of malignant neoplasm of soft tissue
CPT/HCPCS: 36415; 71250; 74177; 82565; Q9967

== ENCOUNTER → 2024-05-28 10:23 | Outpatient (CLI) | payer MEDICARE, OTHER, SELFPAY ==
--- NOTE | 2024-05-28 10:25 | DI.CT.S_ITS ---
PROCEDURE: CT CHEST WO CON INDICATIONS: Abdominal sarcoma TECHNIQUE: Noncontrast 5 mm thick sections acquired from the pulmonary apices to the posterior costophrenic angles. 1 mm lung window, 5 mm thick coronal and sagittal and 7 mm axial MIP reformats were then acquired. For radiation dose reduction, the following was used: automated exposure control, adjustment of mA and/or kV according to patient size. COMPARISON: [facility], CT, CT ABDOMEN PELVIS W CON, 11/08/2022, 13:01. [facility], CT, CT CHEST WO CON, 03/10/2024, 10:54. FINDINGS: Image quality: Diagnostic. Lower Neck: No enlarged lymph nodes. Thyroid: Normal CT appearance. Axillae: No enlarged lymph nodes. Chest Wall: No suspicious soft tissue lesions. Bones: No suspicious bone lesions. Scattered degenerative disc changes in the thoracic spine. Lungs and Pleura: Mild dependent mucus in the trachea. Peripheral airways are patent. Platelike right upper lobe anteromedial atelectasis. Right lower lobe linear interstitial thickening and scarring. Asymmetric elevation of the right hemidiaphragm. 0.7 cm subpleural right lateral lower lobe nodule, 4/158, stable. 0.9 cm solid nodule in the subpleural left lower lobe posteriorly, 4/260, stable. No new nodules, ground-glass opacities, or consolidations. No pleural effusions. Heart: The heart is enlarged and displaced to the left by diaphragmatic elevation and abdominal contents. There is biventricular dilatation. Thoracic Vessels: The aorta and pulmonary arteries demonstrate normal size. Mediastinum and Pauline: No enlarged lymph nodes. Esophagus: No wall thickening. No hiatal hernia. Upper Abdomen: Dictated separately IMPRESSION: Slow growth of bilateral lower lobe lung nodules compared to 11/08/22. The chest is otherwise stable including asymmetric right hemidiaphragm elevation displacing the mediastinum to the left. Dictated by: Nikole Pena M.D. on 05/28/2024 at 15:07 Approved by: Nikole Pena M.D. on 05/28/2024 at 15:35
--- NOTE | 2024-05-28 10:25 | DI.CT.S_ITS ---
PROCEDURE: CT ABDOMEN PELVIS W CON INDICATIONS: Abdominal sarcoma TECHNIQUE: After the administration of intravenous contrast, axial sections acquired from the lung bases to the pubic symphysis. Coronal and sagittal reformats were performed. For radiation dose reduction, the following was used: automated exposure control, adjustment of mA and/or kV according to patient size. COMPARISON: [facility], CT, CT ABDOMEN PELVIS W CON, 11/08/2022, 13:01. [facility], CT, CT ABDOMEN PELVIS W CON, 03/10/2024, 11:59. FINDINGS: Image quality: Diagnostic. Lower Chest: Dictated separately ABDOMEN: Liver: Stable scattered hepatic cysts. No new lesions. Gallbladder: No wall thickening or calcified stones. Biliary ducts: No biliary dilation. Pancreas: Normal size and morphology without visible ductal dilatation or inflammation. Spleen: Size is within normal limits. Adrenal Glands: No adrenal nodules. Kidneys and Ureters: Symmetric enhancement. No hydronephrosis. Right intrarenal parapelvic cysts. Nonobstructing left lower pole collecting system calcification measuring 8 mm with Hounsfield units of 1200. Small exophytic left midpole cortical cyst. No solid masses. Stomach and Bowel: Stomach filled with ingested material. Small bowel is within normal limits. Extensive sigmoid colonic diverticulosis without acute inflammation. The appendix is normal. Peritoneum: No evidence of residual soft tissue in the right mid to lower retroperitoneum or new suspicious fat containing tissue. No intraperitoneal nodularity, free fluid, or free air. Ventral Wall: Tiny fat containing umbilical hernia. Abdominal Nodes: No retroperitoneal or mesenteric adenopathy by size criteria. Vessels: The abdominal aorta, IVC, and portal vein are of normal caliber. PELVIS: Pelvic Organs: Unremarkable. Bladder: Decompressed. Pelvic Nodes: No enlarged lymph nodes. Miscellaneous: No inguinal hernias are seen. Bones: Bilateral hip arthroplasties. No suspicious bone lesions. Multilevel lower thoracic and lumbar spondylosis. IMPRESSION: No evidence of recurrent disease in the right retroperitoneum. Incidental note of chronic nonobstructing left lower pole intrarenal calculus. Sigmoid colonic diverticulosis. No evidence of metastatic disease in the abdomen or pelvis. Dictated by: Nikole Pena M.D. on 05/28/2024 at 15:36 Approved by: Nikole Pena M.D. on 05/28/2024 at 15:46
[2024-05-28 10:53] LABS: Estimated Glomerular Filt Rate > 60 mL/min (>60)
== END ==
PROVIDERS: Radiology Diagnostic Radiology; Family Provider Family Medicine; PCP Family Medicine; Referring Provider Physician Assistant; Visit Provider Physician Assistant
DX: Z08 Encounter for follow-up examination after completed treatment for malignant neoplasm (principal); Z85.831 Personal history of malignant neoplasm of soft tissue; I51.7 Cardiomegaly; R91.8 Other nonspecific abnormal finding of lung field; N28.1 Cyst of kidney, acquired; K76.89 Other specified diseases of liver; K57.30 Diverticulosis of large intestine without perforation or abscess without bleeding; M47.816 Spondylosis without myelopathy or radiculopathy, lumbar region; M47.814 Spondylosis without myelopathy or radiculopathy, thoracic region; Z96.643 Presence of artificial hip joint, bilateral
CPT/HCPCS: 36415; 71250; 74177; 82565; Q9967

== ENCOUNTER → 2024-06-29 08:36 | Outpatient (CLI) | payer MEDICARE, OTHER, SELFPAY ==
--- NOTE | 2024-06-29 08:39 | DI.CT.S_ITS ---
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 5 mm coronal and sagittal reformats were performed, with additional 7 mm MIP reformats through the lungs. For radiation dose reduction, the following was used: automated exposure control, adjustment of mA and/or kV according to patient size. COMPARISON: [facility], CT, CT CHEST ABD PEL W CON, 01/06/2023, 13:17. [facility], CT, CT CHEST WO CON, 05/15/2023, 12:28. [facility], CT, CT ABDOMEN PELVIS W CON, 05/28/2024, 11:42. [facility], CT, CT CHEST WO CON, 05/28/2024, 11:42. FINDINGS: Image quality: Excellent. CHEST: Lower Neck: No enlarged lymph nodes. Thyroid: No thyroid nodules which require sonographic follow up, per consensus guidelines. Axillae: No enlarged lymph nodes. Chest Wall: Unremarkable. Lungs and Pleura: No pneumothorax or pleural effusions. Central airways are clear. No new or enlarging pulmonary nodules. -Right lower lobe pulmonary nodule measuring 0.4 cm, (5/171), unchanged since 2022. -Left lung base pulmonary nodule measuring 0.7 cm, (5/278), unchanged. Heart: Heart size is normal. No pericardial effusion. Thoracic Vessels: The aorta and pulmonary arteries demonstrate normal size. Mediastinum and Pauline: No enlarged lymph nodes. Esophagus: No wall thickening. No hiatal hernia. ABDOMEN: Liver: No solid mass. Multiple small well-circumscribed hepatic cysts are unchanged. Gallbladder: No radiopaque gallstones or wall thickening. Biliary ducts: No biliary dilation. Pancreas: No ductal dilation. Spleen: Size is within normal limits. Adrenal Glands: No adrenal nodules. Kidneys and Ureters: No hydronephrosis. Small peripelvic cysts. Small nonobstructing left kidney stone. No solid mass. No complex renal cystic lesion which requires follow up. Stomach and Bowel: Normal colonic caliber, without significant wall thickening. Diverticulosis. Normal appendix. Peritoneum: No abnormal intraperitoneal fluid. No free air. Ventral Wall: No significant ventral hernia. Abdominal Nodes: No retroperitoneal or mesenteric adenopathy by size criteria. Clips anterior to the right psoas muscle. Vessels: Aorta and inferior vena cava are normal in size. PELVIS: Pelvic Organs: Unremarkable. Bladder: No bladder wall thickening, accounting for underdistention. Pelvic Nodes: No enlarged lymph nodes. Miscellaneous: No inguinal hernias are seen. Bones: No aggressive osseous abnormality. Bilateral hip arthroplasties. IMPRESSION: 1. No recurrent mass. No adenopathy. 2. No new or enlarging pulmonary nodules. Dictated by: Anil Salmeron M.D. on 06/29/2024 at 16:44 Approved by: Ainl Salmeron M.D. on 06/29/2024 at 17:02
== END ==
PROVIDERS: Family Provider Family Medicine; PCP Family Medicine; Referring Provider Surgery; Visit Provider Surgery
DX: C49.9 Malignant neoplasm of connective and soft tissue, unspecified (principal); R91.8 Other nonspecific abnormal finding of lung field; K76.89 Other specified diseases of liver; N28.1 Cyst of kidney, acquired; N20.0 Calculus of kidney
CPT/HCPCS: 71260; 74177; Q9967

== ENCOUNTER → 2024-11-22 13:22 | Outpatient (CLI) | payer MEDICARE, OTHER, SELFPAY ==
--- NOTE | 2024-11-22 13:25 | DI.CT.S_ITS ---
PROCEDURE: CT CHEST ABD PEL W CON INDICATIONS: SARCOMA TECHNIQUE: After the administration of intravenous contrast, 5 mm thick sections acquired from the lung apices to the symphysis. 5 mm coronal and sagittal reformats were performed, with additional 7 mm MIP reformats through the lungs. For radiation dose reduction, the following was used: automated exposure control, adjustment of mA and/or kV according to patient size. COMPARISON: [facility], CT, CT CHEST ABD PEL W CON, 06/29/2024, 10:24. FINDINGS: Image quality: Diagnostic Lungs and pleura: Scattered scarring and atelectasis. Relative elevation of the right hemidiaphragm as before. No new or enlarging pulmonary nodule. Small nodules again seen, stable, for example in the right image 5/171. 8 mm nodule also seen as before at the left costophrenic angle 5/272. Mediastinum, heart, and esophagus: Esophagus appears unremarkable. Heart size is at the upper limit of normal. No pathologic lymphadenopathy by size criteria. Chest wall and thyroid: Unremarkable Liver: Scattered cysts. Subcentimeter lesions are also seen, too small to characterize, commonly also cysts. These are similar. Gallbladder and biliary system: Unremarkable Pancreas: No ductal dilation Spleen: Nonenlarged Adrenals: No discrete nodules Kidneys: No solid mass. No hydronephrosis. Scattered renal cysts are present. Nonobstructing 8 mm left lower pole calculus again seen. Vessels and lymph nodes: The main portal vein is patent. No abdominal aortic aneurysm. Postsurgical changes around the right pelvic sidewall and right psoas, similar to prior imaging. Mild adjacent soft tissue thickening, likely representing scarring, without significant interval change. No pathologic lymphadenopathy by size criteria Bowel and peritoneum: No small bowel obstruction. Colonic diverticula are seen. No drainable abscess or ascites. Body wall: Small fat containing umbilical hernia Pelvis: Obscured by metallic artifact. Under distended bladder, not well assessed Bones: Bilateral hip arthroplasties. There are degenerative osseous changes. No aggressive appearing focal osseous abnormality. IMPRESSION: Postsurgical changes of the right pelvic sidewall and retroperitoneum/psoas. No suspicious finding at the surgical site. No active metastases identified. Stable and incidental findings are described above. Dictated by: Robert Perez M.D. on 11/22/2024 at 16:20 Approved by: Robert Perez M.D. on 11/22/2024 at 16:28
[2024-11-22 13:47] LABS: Estimated Glomerular Filt Rate > 60 mL/min (>60)
== END ==
PROVIDERS: Family Provider Family Medicine; PCP Family Medicine; Referring Provider Surgery; Visit Provider Surgery
DX: C49.9 Malignant neoplasm of connective and soft tissue, unspecified (principal); R91.1 Solitary pulmonary nodule; N28.1 Cyst of kidney, acquired; N20.0 Calculus of kidney; K57.90 Diverticulosis of intestine, part unspecified, without perforation or abscess without bleeding; K42.9 Umbilical hernia without obstruction or gangrene; Z96.643 Presence of artificial hip joint, bilateral
CPT/HCPCS: 36415; 71260; 74177; 82565; Q9967

== ENCOUNTER 2025-03-21 10:18 | Emergency (ER) | payer MEDICARE, OTHER, SELFPAY ==
[2025-03-21 10:33] VITALS: BP 139/67; PULSE 58; RESP 20; TEMP 36.6; O2SAT 92; BMI 25.1
--- NOTE | 2025-03-21 10:56 | ED_ITS ---
HPI - Fall General Chief Complaint: Fall Stated Complaint: Fell hit lower back x3 days Time Seen by Provider: 03/21/25 10:34 Source: patient Mode of arrival: Ambulatory History of Present Illness HPI Narrative: 79-year-old gentleman COPD hypertension osteoarthritis was out crabbing over the weekend when the [place] were choppy and he fell over the crab pot onto his left side complaining of left flank pain despite taking oxycodone with no significant relief of his symptoms. He denies fever, chills, body aches, sore throat, chest pain, nausea, vomiting, diarrhea, constipation, hematuria. Other than what is stated 14 point review of system is negative. Related Data Home Medications ?Medication ?Instructions ?Recorded ?Confirmed oxycodone 20 mg tablet 20 mg PO PRN PRN Pain (Scale Score 12/25/17 08/31/24 1-3) ##0 zolpidem 10 mg tablet 10 mg PO BEDTIME PRN Insomni a 09/23/19 08/31/24 amlodipine 5 mg-atorvastatin 80 mg 1 tab PO DAILY 10/1808/31/24 tablet Previous Rx's ?Medication ?Instructions ?Recorded hydrocodone 5 mg-acetaminophen 325 1 tab PO Q4-6H PRN pain #20 tabs 03/21/25 mg tablet Allergies Allergy/AdvReac Type Severity Reaction Status Date / Time No Known Drug Allergies Allergy Verified 03/21/25 10:33 Review of Systems Review of Systems ROS Unobtainable: All systems reviewed & are unremarkable except as noted in HPI and below Patient History Medical History (Updated 03/21/25 @ 11:57 by Fabian Fournier DO) Arthritis Cardiac murmur Sinus bradycardia Palpitations HTN (hypertension) Right hydrocele Median nerve compression Left rotator cuff tear Pneumonia COPD (chronic obstructive pulmonary disease) Depression DJD (degenerative joint disease) Osteoarthritis Surgical History History of colonoscopy History of thumb surgery History of arthroscopy of right knee History of bilateral knee arthroplasty History of bilateral total hip arthroplasty Family History Father Diabetes mellitus Hypertension AA (aortic aneurysm) Migraines Aunt Cancer Uncle Cancer Social History marital status: household members: friend(s) Previous occupational history: [employer] Tobacco: How many years used: 60 Smokeless tobacco user: chewing tobacco alcohol intake: former caffeine: Yes Smoking Status: Current every day smoker tobacco type: smokeless tobacco Exam Narrative Exam Narrative: GENERAL: [79] year old patient appears stated age. Well-developed patient, in mild distress. HEAD: Atraumatic. Normocephalic. EYES: Pupils equal round and reactive. Extraocular motions intact. No scleral icterus. No injection or drainage. ENT: Nose without bleeding, purulent drainage. Throat without erythema, tonsillar hypertrophy or exudate. Airway patent. NECK: Trachea midline. Non tender CARDIOVASCULAR: Regular rate and rhythm without murmurs, gallops, or rubs. RESPIRATORY: Clear to auscultation. Breath sounds equal bilaterally. No wheezes, rales, or rhonchi. GASTROINTESTINAL: Abdomen soft, non-tender, nondistended. EXTREMITIES: No edema or joint tenderness. BACK: Nontender without deformity or crepitance. L flank TTP NEURO: AOx3. SKIN: No rash or erythema of visible areas Initial Vital Signs Initial Vital Signs: Vital Signs Temperature 97.8 F 03/21/25 10:33 Pulse Rate 58 L 03/21/25 10:33 Respiratory Rate 20 03/21/25 10:33 Blood Pressure 139/67 03/21/25 10:33 Pulse Oximetry 92 03/21/25 10:33 Oxygen Delivery Method Room Air 03/21/25 10:33 Course Orders Ordered: ED Orders 03/21/25 10:55 CT Trauma Chest Abdomen Pelvis Stat CBC Auto Diff [Complete Blood Count AUTO DIFF] Stat CMP [Comprehensive Metabolic Panel] Stat Vital Signs Vital signs: Vital Signs - 8 hr 03/21/25 10:33 Temperature 97.8 F Pulse Rate 58 L Respiratory Rate 20 Blood Pressure 139/67 Pulse Oximetry 92 Oxygen Delivery Method Room Air MDM - Fall Imaging Data CT scan - abdomen/pelvis: Radiologist's Impression: [address] [address] [address] Scan Report Signed Patient: Jeffery Hedrick MR#: [id number] : 1945 Acct:[id number] Age/Sex: 79 / M Date of Service: 03/21/25 Loc: ED Accession Number: [id number] Procedure: CT Trauma Chest Abdomen Pelvis Ordering Provider: Fabian Fournier D.O. PROCEDURE: CT TRAUMA CHEST ABDOMEN PELVIS INDICATIONS: LEFT RIB PAIN POST FALL TECHNIQUE: MDCT axial chest images were obtained with IV contrast in the arterial phase. Maximum intensity projections and multiplanar reformats were obtained. MDCT axial abdomen and pelvis images were obtained with IV contrast in the portal venous phase. Multiplanar reformats were obtained. Optional delayed phase scanning may also be obtained Advanced techniques were used to lower patient radiation exposure. COMPARISON:[facility], CT, CT CHEST ABD PEL W CON, 11/22/2024, 14:34. FINDINGS Image Quality: Diagnostic. Chest: Lungs and pleura: No pneumothorax or hemothorax. No pulmonary contusions or lacerations. No solid pulmonary nodule requiring follow-up. Vascular: No dissection or pseudoaneurysm. No incidental central pulmonary embolism. No hemopericardium. Mediastinum: No mediastinum hematoma. No suspicious mass or lymph nodes. No actionable thyroid nodules. Chest wall: Intact clavicles, scapula, and glenohumeral joint. Left posterior 11th and 12th rib fractures, minimally displaced. Thoracic spine: No acute fracture or traumatic subluxation. ABDOMEN and PELVIS: Liver: No laceration or capsular hematoma. Stable hypoattenuating lesions. Gallbladder: Unremarkable. Biliary system: Non-dilated. Pancreas: Unremarkable. Spleen: No laceration or capsular hematoma. Adrenals: No suspicious nodules. Kidneys: No contrast extravasation or hydronephrosis. No solid masses. Small burden of left-sided nonobstructing nephrolithiasis, largest measuring 7-8 millimeter. Surgical resection in the right retroperitoneum. Vessels and lymph nodes: No pathology lymph nodes by size criteria. No dissection or aneurysm. No retroperitoneal hematoma. Bowel and peritoneum: No suspicious region of mesenteric hemorrhage or hemoperitoneum. No bowel obstruction. Elevated right hemidiaphragm. Pelvis: Unremarkable bladder. Pelvic ring and femurs: No pelvic ring disruption. No hip fractures. Bilateral hip arthroplasties. Lumbar spine: No acute fracture or traumatic subluxation. Abdominal wall: No drainable fluid collection or hematoma. IMPRESSION: Left posterior 11th and 12th rib fractures which are minimally displaced and fractured in 1 location. No pneumothorax or intra-abdominal abnormality related to the fracture. MDM Narrative Medical decision making narrative: Vital signs, nurse triage note, medication list, previous ER visits, and all imaging studies reviewed. CTA chest abdomen and pelvis showed left posterior 11th and 12th rib fracture which are minimally displaced and fractured in 1 location. No pneumothorax or intra-abdominal abnormality related to the fracture. Differential diagnosis includes fracture, dislocation, pneumothorax, splenic injury, liver laceration, contusion. DC home on [place]. Follow up PCP in 1-2 weeks if no improvement in symptoms Discharge Plan Departure Patient Disposition: Home Clinical Impression: Closed rib fracture Qualifiers: Encounter type: initial encounter Rib fracture type: multiple ribs Laterality: left Qualified Code(s): S22.42XA - Multiple fractures of ribs, left side, initial encounter for closed fracture Instructions: DI for Rib Fracture Activity Restrictions/Additional Instructions: Return with new or worsening symptoms. Take your medicines as directed. Follow up PCP 1-2 weeks if no improvement in symptoms. Prescriptions: New hydrocodone-acetaminophen 5-325 mg tablet 1 tab PO Q4-6H PRN (Reason: pain) Qty: 20 0RF No Action amlodipine-atorvastatin 5-80 mg tablet 1 tab PO DAILY oxycodone 20 mg Tablet 20 mg PO PRN PRN (Reason: Pain (Scale Score 1-3)) Qty: 0 zolpidem 10 mg Tablet 10 mg PO BEDTIME PRN (Reason: Insomnia) Referrals: Irvin Ireland MD [Primary Care Provider, Family Practice] Stand Alone Forms: Patient Portal/API
[2025-03-21] MEDS: LACTATED RINGERS 1,000 ML 1000 ML IV (11:22)
[2025-03-21 11:26] LABS: Add Manual Diff / Slide Review NO; Hematocrit 36.9 % (41-53); Hemoglobin 12.2 g/dL (13.5-17.5); Lymphocytes Absolute Auto 1100 /uL (1100-4500); Mean Corpuscular HGB Conc 33.0 % (30-36); Mean Corpuscular Hemoglobin 29.3 PG (26-34); Mean Corpuscular Volume 88.9 fL (80-100); Platelet Count 242 X10^3/uL (150-400)
[2025-03-21 11:37] LABS: Alanine Aminotransferase 18 IU/L (<50); Albumin 4.4 g/dL (3.5-5.0); Albumin Globulin Ratio 1.5 (1.0-2.8); Alkaline Phosphatase 68 U/L (38-126); Blood Urea Nitrogen 14 mg/dL (9-20); Calcium 8.5 mg/dL (8.4-10.2); Carbon Dioxide 29 mmol/L (22-32); Chloride 100 mmol/L (98-107); Estimated Glomerular Filt Rate > 60 mL/min (>60); Globulin 2.9 g/dL (1.7-4.1); Glucose 86 mg/dL (70-99); HEMOLYSIS < 15 (0-50); Potassium 4.0 mmol/L (3.4-5.1); Sodium 135 mmol/L (137-145); Total Protein 7.3 g/dL (6.3-8.2)
[2025-03-21] MEDS: HYDROCODONE/ACET 5/325 TABLET 1 TAB PO (12:11)
[2025-03-21 12:30] VITALS: BP 165/74; PULSE 47; RESP 16; O2SAT 93
== END 2025-03-21 12:30 | disposition home or self-care (01) ==
PROVIDERS: Emergency Provider Family Medicine; Family Provider Family Medicine; PCP Family Medicine
DX: S22.42XA Multiple fractures of ribs, left side, initial encounter for closed fracture (principal); W01.198A Fall on same level from slipping, tripping and stumbling with subsequent striking against other object, initial encounter
CPT/HCPCS: 36415; 71275; 74177; 80053; 85025; 96360; 99284; Q9967

== ENCOUNTER → 2025-04-27 11:01 | Outpatient (CLI) | payer MEDICARE, OTHER, SELFPAY ==
--- NOTE | 2025-04-27 11:03 | EKG_ITS ---
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
== END ==
PROVIDERS: PCP Family Medicine; Referring Provider Surgery; Visit Provider Surgery
DX: I51.7 Cardiomegaly (principal)
CPT/HCPCS: 93005

== ENCOUNTER 2025-05-13 08:59 | Day surgery (SDC) | payer MEDICARE, OTHER, SELFPAY ==
[2025-05-09 11:06] VITALS: BMI 25.1
--- NOTE | 2025-05-13 06:54 | PM.PREOP ---
Pre-operative Note Interval Note History & Physical reviewed/Exam performed by Physician: Yes Changes to H&P: No ASA Class (for procedural sedation): III
[2025-05-13] MEDS: LACTATED RINGERS 1,000 ML 42 ML IV (09:21)
[2025-05-13] MEDS: FAMOTIDINE 20 MG/2 ML VIAL IV (09:22)
[2025-05-13] MEDS: HEPARIN 5,000 UNIT/ML VIAL 5000 UNIT SUBCUT (09:29)
[2025-05-13 09:52] VITALS: BP 115/64; PULSE 52; RESP 16; TEMP 36.4; O2SAT 96; BMI 25.1
--- NOTE | 2025-05-13 11:03 | SUR.OPER ---
Supine on padded OR bed, head on pillow, arms secured on padded arm boards at <90 degrees abduction, legs uncrossed, safety belt at thigh, tape over blanket over lower legs.
[2025-05-13] MEDS: BUPivacaine 0.25% W/ EPI (PF) 30 ML VIAL INJ (11:11)
[2025-05-13 11:31] VITALS: BP 122/65; PULSE 80; RESP 16; TEMP 36.2; O2SAT 98
[2025-05-13 11:36] VITALS: BP 126/79; PULSE 83; RESP 16; TEMP 36.2; O2SAT 98
--- NOTE | 2025-05-13 11:38 | PM.OP.1 ---
Operative Date/Time/Diagnoses Date of procedure: 05/13/25 Time of procedure: 11:38 Pre-op diagnosis: Incisional hernia Post-op diagnosis: same Procedure & Clinicians Procedure: Incisional hernia repair with mesh Same procedure(s) as scheduled: Yes Indications: 79yo M with incisional hernia Surgeon: Alfonso Lofton Assisted?: No Anesthesia Type: General Operative Notes Findings: 4cm defect superior portion of incision Closure Type: primary Specimen(s): none sent Applied: none Estimated Blood Loss (mL): 10 Blood products transfused: none Procedure in detail: After informed consent and satisfactory general endotracheal anesthesia, the abdomen was prepped and draped in the usual sterile manner. The patient received appropriate preoperative antibiotics and DVT prophylaxis. Surgical time-out was performed with all team members in agreement. After injecting 0.5% Marcaine with epinephrine into the skin we reopened the midline scar above the umbilicus. Hemostasis was achieved with cautery. We bluntly dissected around the hernia sac. There was noted to be a 4 cm fascial defect in the superior portion of the incision and this was dissected free and the sac was able to be reduced without entering the peritoneal cavity. There was no current visceral contents palpable within the hernia sac. We were able to place a small [place] strap Bard mesh in the preperitoneal space and incorporate the strap in the closure. The fascia was closed using 0 Ethibond interrupted pop-off suture. There were no remaining palpable fascial defects. The excess strap was excised after it was incorporated into the suture closure. We injected the remaining 30 cc of 0.5% Marcaine with epinephrine into the musculature around the incision for postoperative analgesia. Hemostasis was excellent. The subcutaneous plane was closed using 3-0 Vicryl in an interrupted manner. The skin incision was closed using 4-0 Monocryl in a subcuticular manner. Dermabond glue was applied as a final dressing. The estimated blood loss was minimal. The instrument sponge and needle counts were all correct x2. The patient tolerated the procedure well and was extubated in the operating room and transported to the recovery area in stable condition. Complications: none Post-operative Condition: stable Disposition: PACU Plan for aftercare: PACU then home
[2025-05-13 11:45] VITALS: BP 115/64; PULSE 52; RESP 16; TEMP 36.2; O2SAT 98
[2025-05-13 12:10] VITALS: BP 108/72; PULSE 54; RESP 16; TEMP 36.2; O2SAT 95
== END 2025-05-13 12:10 | disposition home or self-care (01) ==
PROVIDERS: PCP Family Medicine; Referring Provider Surgery; Visit Provider Surgery
PROC: (CPT 49593; principal; 2025-05-13 10:45)
DX: K43.2 Incisional hernia without obstruction or gangrene (principal); J44.9 Chronic obstructive pulmonary disease, unspecified; Z72.0 Tobacco use
CPT/HCPCS: 49593; C1781; J0690; J1100; J1644; J2405; J2704; J3010